=== PATIENT | female | born 1970 | race Caucasian/White ===

== ENCOUNTER 2023-07-14 11:47 | Outpatient (CLI) | payer OTHER, SELFPAY ==
--- OUTSIDE RECORDS SUMMARY | 2023-07-14 11:50 | XMS_ITS | Continuity of Care Document ---
Author Name Unknown Address [address] [place], [place] [id number] Organization [facility] Phone Care Team Providers Care It Support Specialist Name Role Phone ERIK METZ Primary Care CANDIS KELLY Admitting CANDIS KELLY Unavailable CANDIS KELLY Primary Attending ALLERGIES AND ADVERSE REACTIONS ALLERGIES AND ADVERSE REACTIONS Code System Allergy Substance Adverse Reaction Date Reaction (Severity) Comment Status Reported By Updated By No Known Allergies [email or web address] on July 09, 2023 6:49:21 PM UTC RESULTS Patient: STEVAN RITCHIE Date of : 1970 LABORATORY RESULTS ORDER 100: UA AND MICRO/CULT IF INDICATED (LOINC: 99324-6) ORDER DATE: July 09, 2023 6:54:00 PM UTC Specimen Source: URINE Specimen Type: Urine specime n PERFORMING LAB: [address] [id number] Result Comment: Final Result Date: July 09, 2023 6:59:00 PM UTC (TECH: [employer]) LOINC TEST FLAG RESULT REFERENCE RANGE UPDA JAMESON BY 5778-6 Color of Urine N yellow YELLOW July 6:59:00 PM UTC (TECH: [employer]) 5767-9 Appearance of Urine N clear CLEAR July 09, 2023 6:59:00 PM UTC (TECH: [facility]) 5792-7 Glucose [Mass/volume] in Urine by Test strip N NORM NORMAL July 09, 2023 6:59:00 PM UTC (TECH: [facility]) 40042-4 Bilirubin.total [Mass/volume] in Urine by Automated test strip N NEGATIVE NEGATIVE July 09, 2023 6:59:00 PM UTC (TECH: [employer]) 5797-6 Ketones [Mass/volume] in Urine by Test strip N NEGATIVE NEGATIVE July 09, 2023 6:59:00 PM UTC (TECH: [employer]) 2965-2 Specific gravity of Urine N 1.010 1.005 - 1.035 July 09, 2023 6:59:00 PM UTC (TECH: [employer]) 25752-6 Erythrocytes [#/volume] in Urine by Automated test strip N NEGATIVE NEGATIVE July 09, 2023 6:59:00 PM UTC (TECH: [employer]) 28557-6 pH of Urine by Automated test strip N 6.00 5.0 - 7.5 July 09, 2023 6:59:00 PM UTC (TECH: [employer]) 96142-4 Protein [Presence] in Urine by Test strip N NEGATIVE NEGATIVE July 09, 2023 6:59:00 PM UTC (TECH: [employer]) 96389-2 Urobilinogen [Mass/volume] in Urine by Automated test strip N NORM NORMAL July 09, 2023 6:59:00 PM UTC (TECH: [employer]) 09849-6 Nitrate [Presence] in Urine N NEGATIVE NEGATIVE July 09, 2023 6:59:00 PM UTC (TECH: [employer]) 20917-2 Leukocytes [#/volume] in Urine by Test strip N TRACE (25) /mcL NEGATIVE July 09, 2023 6:59:00 PM UTC (TECH: [employer]) 72555-7 Other elements in Urine sediment N NOT REQUIRED July 09, 2023 6:59:00 PM UTC (TECH: [employer]) 86318-9 Microscopic observation [Identifier] in Urine sediment by Light microscopy N NO July 09, 2023 6:59:00 PM UTC (TECH: [employer]) ORDER 300: CBC AUTO W DIFF ( LOINC: 41875-8) ORDER DATE: July 09, 2023 7:33:00 PM UTC Specimen Source: Whole Blood Specimen Type: Whole blood s ample PERFORMING LAB: [address] [id number] Result Comment: Final Result Date: July 09, 2023 8:05:00 PM UTC (TECH: [employer]) LOINC TEST FLAG RESULT REFERENCE RANGE UPDA JAMESON BY 6690-2 Leukocytes [#/volume] in Blood by Automated count H 11.7 10^3/uL 4.5 10^3/uL - 11.5 10^3/uL July 09, 2023 8:05:00 PM UTC (TECH: [employer]) 789-8 Erythrocytes [#/volume] in Blood by Automated count H 5.60 10^6/uL 4.25 10^6/uL - 5.57 10^6/uL July 09, 2023 8:05:00 PM UTC (TECH: [employer]) 718-7 Hemoglobin [Mass/volume] in Blood H 16.7 g/dL 12.0 g/dL - 15.7 g/dL July 09, 2023 8:05:00 PM UTC (TECH: [employer]) 08570-7 Hematocrit [Volume Fraction] of Blood H 49.2 % 36.0 % - 47.0 % July 09, 2023 8:05:00 PM UTC (TECH: [employer]) 787-2 Erythrocyte mean corpuscular volume [Entitic volume] by Automated count N 87.9 fl 80 fl - 95 fl July 09, 2023 8:05:00 PM UTC (TECH: [employer]) 29095-2 Erythrocyte mean corpuscular hemoglobin [Entitic mass] in Blood from Fetus by Automated count N 29.8 pg 27.0 pg - 34.0 pg July 09, 2023 8:05:00 PM UTC (TECH: [employer]) 09403-8 Erythrocyte mean corpuscular hemoglobin concentration [Mass/volume] in Blood from Fetus by Automated count N 33.9 g/dL 32.0 g/dL - 36.0 g/dL July 09, 2023 8:05:00 PM UTC (TECH: [employer]) 69869-3 Platelets [#/volume] in Blood N 160 10^3/uL 150 10^3/uL - 450 10^3/uL July 09, 2023 8:05:00 PM UTC (TECH: [employer]) 70450-4 Erythrocyte distribution width [Ratio] H 15.4 % 12.3 % - 15.1 % July 09, 2023 8:05:00 PM UTC (TECH: [employer]) 48894-5 Platelet mean volume [Entitic volume] in Blood by Automated count H 12.1 fl 7.4 fl - 10.4 fl July 09, 2023 8:05:00 PM UTC (TECH: [employer]) 87576-6 Granulocytes/100 leukocytes in Blood by Automated count N 56.8 % 40 % - 75 % July 09, 2023 8:05:00 PM UTC (TECH: [facility]) 736-9 Lymphocytes/100 leukocytes in Blood by Automated count N 35.4 % 15 % - 57 % July 09, 2023 8:05:00 PM UTC (TECH: [employer]) 5905-5 Monocytes/100 leukocytes in Blood by Automated count N 6.3 % 4.0 % - 12.0 % July 09, 2023 8:05:00 PM UTC (TECH: [employer]) 713-8 Eosinophils/100 leukocytes in Blood by Automated count N 0.8 % 0.0 % - 4.0 % July 09, 2023 8:05:00 PM UTC (TECH: [employer]) 706-2 Basophils/100 leukocytes in Blood by Automated count N 0.4 % 0.0 % - 1.0 % July 09, 2023 8:05:00 PM UTC (TECH: [employer]) 20342-8 Immature granulocytes [#/volume] in Blood N 0.3 % 0.0 % - 0.8 % July 09, 2023 8:05:00 PM UTC (TECH: [employer]) 56600-8 Granulocytes [#/volume] in Blood by Automated count N 6.67 10^3/uL July 09, 2023 8:05:00 PM UTC (TECH: [employer]) 731-0 Lymphocytes [#/volume] in Blood by Automated count N 4.15 10^3/uL July 09, 2023 8:05:00 PM UTC (TECH: [employer]) 742-7 Monocytes [#/volume] in Blood by Automated count N 0.74 10^3/uL July 09, 2023 8:05:00 PM UTC (TECH: [facility]) 711-2 Eosinophils [#/volume] in Blood by Automated count N 0.09 10^3/uL July 09, 2023 8:05:00 PM UTC (TECH: [employer]) 704-7 Basophils [#/volume] in Blood by Automated count N 0.05 10^3/uL July 09, 2023 8:05:00 PM UT (TECH: [employer]) 97097-6 Immature granulocytes [#/volume] in Blood N 0.03 10^3/uL July 09, 2023 8:05:00 PM UT (TECH: [employer]) 63565-6 Manual differential performed [Presence] in Blood N NO July 09, 2023 8:05:00 PM UT (TECH: [employer]) ORDER 400: COMP METABOLIC PA TAYE (LOINC: 14000-8) ORDER DATE: July 09, 2023 7:33:00 PM UT Specimen Source: Plasma Specimen Type: Plasma specim en PERFORMING LAB: [address] [id number] Result Comment: Final Result Date: July 09, 2023 8:19:00 PM [facility] (TECH: [employer]) LOINC TEST FLAG RESULT REFERENCE RANGE UPDA JAMESON BY 2951-2 Sodium [Moles/volume ] in Serum or Plasma N 140 mmol/L 136 mmol/L - 145 mmol/L July 09, 2023 8:19:00 PM UT (TECH: [employer]) 2823-3 Potassium [Moles/volume] in Serum or Plasma N 4.4 mmol/L 3.5 mmol/L - 5.1 mmol/L July 09, 2023 8:19:00 PM UT (TECH: [employer]) 2075-0 Chloride [Moles/volu me] in Serum or Plasma N 103 mmol/L 98 mmol/L - 107 mmol/L July 09, 2023 8:19:00 PM UT (TECH: [employer]) 8-9 Carbon dioxide, tota l [Moles/volume] in Serum or Plasma N 31 mmol/L 21 mmol/L - 32 mmol/L July 09, 2023 8:19:00 PM UT (TECH: [employer]) 12907-4 Anion gap 3 in Serum or Plasma N 6.0 July 09, 2023 8:19:00 PM UT (TECH: [employer]) 2345-7 Glucose [Mass/volume ] in Serum or Plasma N 109 mg/dL 70 mg/dL - 110 mg/dL July 09, 2023 8:19:00 PM UT (TECH: [employer]) 3094-0 Urea nitrogen [Mass/volume] in Serum or Plasma N 9 mg/dL 7 mg/dL - 18 mg/dL July 09, 2023 8:19:00 PM [facility] (TECH: [employer]) 2160-0 Creatinine [Mass/volume] in Serum or Plasma N 0.9 mg/dL 0.6 mg/dL - 1.0 mg/dL July 09, 2023 8:19:00 PM [facility] (TECH: [employer]) 3097-3 Urea nitrogen/Creatinine [Mass Ratio] in Serum or Plasma N 10.0 Ratio 9 Ratio - 21 Ratio July 09, 2023 8:19:00 PM [facility] (TECH: [employer]) 67436-2 Glomerular filtratio n rate/1.73 sq M.predicted by Creatinine-based formula (MDRD) N 69 mL/min >60 July 09, 2023 8:19:00 PM [facility] (TECH: [employer]) 2885-2 Protein [Mass/volume ] in Serum or Plasma N 7.4 g/dL 6.4 g/dL - 8.2 g/dL July 09, 2023 8:19:00 PM [facility] (TECH: [employer]) 1751-7 Albumin [Mass/volume ] in Serum or Plasma N 3.9 g/dL 3.4 g/dL - 5.0 g/dL July 09, 2023 8:19:00 PM [facility] (TECH: [employer]) 95446-2 Calcium [Mass/volume ] in Serum or Plasma H 10.4 mg/dL 8.5 mg/dL - 10.1 mg/dL July 09, 2023 8:19:00 PM [facility] (TECH: [employer]) 50825-2 Calcium [Mass/volume ] corrected for total protein in Serum or Plasma H 10.5 mg/dL 8.5 mg/dL - 10.1 mg/dL July 09, 2023 8:19:00 PM [facility] (TECH: [employer]) 1975-2 Bilirubin.total [Mass/volume] in Serum or Plasma N 0.6 mg/dL 0.4 mg/dL - 1.5 mg/dL July 09, 2023 8:19:00 PM [facility] (TECH: [employer]) 1920-8 Aspartate aminotransferase [Enzymatic activity/volume] in Serum or Plasma N 18 U/L 15 U/L - 37 U/L July 09, 2023 8:19:00 PM [facility] (TECH: [employer]) 1742-6 Alanine aminotransferase [Enzymatic activity/volume] in Serum or Plasma N 39 U/L 12 U/L - 78 U/L July 09, 2023 8:19:00 PM UT (TECH: [employer]) 6768-6 Alkaline phosphatase [Enzymatic activity/volume] in Serum or Plasma N 93 U/L 50 U/L - 120 U/L July 09, 2023 8:19:00 PM UTC (TECH: [employer]) ORDER 500: LIPASE (LOINC: 30 40-3) ORDER DATE: July 09, 2023 7:33:00 PM UTC Specimen Source: Plasma Specimen Type: Plasma specim en PERFORMING LAB: [address] [id number] Result Comment: Final Result Date: July 09, 2023 8:19:00 PM UT (TECH: [employer]) LOINC TEST FLAG RESULT REFERENCE RANGE UPDA JAMESON BY 3040-3 Lipase [Enzymatic activity/volume] in Serum or Plasma N 39 U/L 16 U/L - 77 U/L July 09, 2023 8:19:00 PM UTC (TECH: [employer]) ORDER 600: TROPONIN QUANT (L OINC: 29638-8) ORDER DATE: July 09, 2023 7:33:00 PM UTC Specimen Source: Plasma Specimen Type: Plasma specim en PERFORMING LAB: [address] [id number] Result Comment: Final Result Date: July 09, 2023 8:19:00 PM UT (TECH: [employer]) LOINC TEST [place] [address]-7 Troponin I.cardiac p anshu - Serum or Plasma by High sensitivity method N 6 ng/L 0 ng/L - 51 ng/L July 09, 2023 8:19:00 PM UT (TECH: [employer]) LABORATORY NARRATIVE RESULTS Information is not available RADIOLOGY RESULTS ORDER 200: CT ABD/PEL NO ORA L OR IV CONTR (LOINC: 97654-9) ORDER DATE: July 09, 2023 7:33:00 PM UTC PERFORMING LAB: [address] [id number] Final Result Date: July 08 8:18:[address] [place] [address] Name: ERMA CALLES Exam Date: 07/09/2023 : 1970 Age 53 years Gender: F Physician: CANDIS KELLY Facility: PSYCHIATRIC Facility HSV: Outpatient Exam: CT ABD/PEL NO ORAL OR IV CONTR FINAL REPORT TECHNIQUE: Axial images through the abdomen and pelvis were performed without contrast. This study was performed with techniques to keep radiation doses as low as reasonably achievable, (ALARA). Individualized dose reduction techniques using automated exposure control or adjustment of mA and/or kV according to the patient's size were employed. CLINICAL HISTORY: RT flank pain x 4 days, no hx of renal stones FINDINGS: ABDOMEN: The lung bases are clear. There is a small hiatal hernia. The heart size is normal. Limited images of the liver are unremarkable. The gallbladder is absent. The spleen is normal. The right adrenal gland is unremarkable. There is fat density involving the left adrenal gland measuring up to 3.8 cm likely a myelolipoma. There is atherosclerosis without aneurysm. There is no significant free fluid or adenopathy. There is no nephrolithiasis. There is no hydronephrosis. There are postoperative changes in the ventral abdominal wall. PELVIS: The appendix is not identified. The cecum is noted in the left lower quadrant. The urinary bladder is decompressed. There is a left adnexal cystic structure measuring up to 3.9 cm likely reflecting a cyst. Pelvic ultrasound may be of benefit. IMPRESSION: Left ovarian cyst. Consider pelvic ultrasound if clinically warranted. 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 Reviewed, Interpreted and Dictated by Deondre Somers DO Transcribed by Ab Venegas Authenticated and EASTERN Dictated By: Deondre Somers DO Transcribed By: Transcribed On: 07/09/2023 4:18 PM Electronically signed by: Deondre Somers DO 07/09/2023 Thank you for referring ERMA CALLES to [facility]. Legally authenticated by POPE DEONDRE Montes DO 2023-07-09 16:18:55 PATHOLOGY NARRATIVE RESULTS Information is not available MICROBIOLOGY RESULTS No Micro Labs/Results Exist for Patient BLOOD ADMIN RESULTS Information is not available MEDICATIONS HOME MEDICATIONS Status RXNORM NDC Medication Dose Route Frequency Dates Comments Reported By Updated By Drug Treatment Unknown DISCHARGE MEDICATIONS Status RXNORM NDC Medication Dose Route Frequency Dates Comments Physician Updated By No Discharge Medication Info rmation Available INPATIENT MEDICATIONS Status RXNORM NDC Medication Dose Route Frequency Rat e Quantity Dates Comments Physician Updated By Susanna inued [id number] ketorolac (TORADOL) 30 MG/ML SOLN 30.0 MG INTRAV ENOUS ONE TIME ONLY Start: July 09, 2023 8:02:0 0 PM UTC End: July 09, 2023 8:02:0 0 PM UTC LETICIA Irby MD INTERFAC ED on July 09, 2023 8:01:00 PM UT Discont inued [id number] famotidine (PEPCID) 20 MG/2ML SOLN 20.0 MG INTRAV ENOUS ONE TIME ONLY Start: July 09, 2023 8:04:0 0 PM UTC End: July 09, 2023 8:04:0 0 PM UTC LETICIA Irby MD INTERFAC ED on July 09, 2023 8:02:00 PM UT SOCIAL HISTORY SOCIAL HISTORY SNOMED-CT Social History Element Description Effective Dates Offered Cessation Comment UpdatedBy [id number] Smoking Status Unknown If Ever Smoked SOCIAL HISTORY - Gender Sex: Female SOCIAL HISTORY - Status : status i nformation is not available Intention in Next Year: intention information is not available SOCIAL HISTORY - Sexual Behavior Sexual Orientation Gender Identity SNOMED-CT Description SNO MED -CT Description Activity Level No of Partners Partner Type UpdatedBy Information is not available VITAL SIGNS PATIENT VITAL SIGNS This section displays the mo st recent value for each vital sign as of July 11, 2023 1:49:58 PM UT Loinc Code Vital Sign Activity Date Result Updated By 8310-5 Body temperature July 09, 2023 6:4 2:00 PM UTC 97.9 [degF] [id number] on July 09, 2023 6:47:53 PM UT 8462-4 Diastolic blood pressure July 09, 2023 8:43:00 PM UTC 78.0 mm[Hg] [id number] on July 09, 2023 8:44:17 PM UT 8867-4 Heart rate July 09, 2023 8:43 :00 PM UT 85 /min [id number] on July 09, 2023 8:44:17 [place] [address]-2 Oxygen saturation in Arterial blood by Pulse oximetry July 09, 2023 8:43:00 PM [facility] 100.0 % [id number] on July 09, 2023 8:44:17 PM [facility] 9279-1 Respiratory rate July 09, 2023 8:4 3:00 PM [facility] 18 /min [id number] on July 09, 2023 8:44:17 PM [facility] 8480-6 Systolic blood pressure July 08 024 8:43:00 PM UT 136.0 mm[Hg] [id number] on July 09, 2023 8:44:17 PM [facility] PEDIATRIC GROWTH CHART - VITAL SIGNS This section displays Head C ircumference Percentile, Weight for Length Percentile and BMI Percentile Loinc Code Pediatric Measure Age (Months) Result Updat ed By No Pediatric Growth Chart Pe rcentile Information Available. HEALTH CONCERNS Problems Concern Status Health Concern problem infor mation not available. Smoking Status Status Years Used Consumed packs p er day Health Concern smoking histo ry information not available. Family History Concern Status Health Concern family histor y information not available. ENCOUNTERS ENCOUNTER INFORMATION Reason for Visit BACK PAIN Admission July 09, 2023 6:25:[address] [address] Discharge July 09, 2023 8:44:00 PM [facility] DISCH ARGED TO HOME OR SELF CARE ENCOUNTER DIAGNOSES Notes information is not mikaela ilable. Code System Diagnosis Onset Date Diagnosis information is not available. ABSTRACT DIAGNOSES Code System Diagnosis Updated By R10.9 ICD10 UNSPECIFIED ABDOMINAL PAIN P [id number] on July 11, 2023 1:49:30 PM [facility] M62.830 ICD10 MUSCLE SPASM OF BACK [id number] on July 11, 2023 1:49:31 PM [facility] Q50.1 ICD10 DEVELOPMENTAL OVARIAN CYST P [id number] on July 11, 2023 1:49:31 PM [facility] D17.79 ICD10 BENIGN LIPOMATOU S NEOPLASM OF OTHER SITES [id number] on July 11, 2023 1:49:31 PM [facility] I10 ICD10 ESSENTIAL (PRIMARY) HYPERTEN REGINA [id number] on July 11, 2023 1:49:31 PM [facility] E11.9 ICD10 TYPE 2 DIABETES MELLITUS WITHOUT COMPLICATIONS [id number] on July 11, 2023 1:49:31 PM [facility] F17.210 ICD10 NICOTINE DEPENDE NCE, CIGARETTES, UNCOMPLICATED [id number] on July 11, 2023 1:49:31 PM UTC E66.9 ICD10 OBESITY, UNSPECIFIED [id number] on July 11, 2023 1:49:31 PM UT Z68.25 ICD10 BODY MASS INDEX [BMI] 25.0-2 5.9, ADULT [id number] on July 11, 2023 1:49:31 PM UT CARE TEAM Care It Support Specialist Role ERIK METZ Primary Care CANDIS KELLY Admitting CANDIS KELLY Referring CANDIS KELLY Primary Attending CARE TEAM CARE line tender flakeboard Role on Team Status Start Date End Date Update d By LETICIA Irby MD Referring normal July 08 7:03:02 PM [facility] July 09, 2023 4:00:00 AM UT [id number] on July 09, 2023 7:03:02 PM [facility] LETICIA Irby MD Attending normal July 08 7:03:02 PM [facility] July 09, 2023 4:00:00 AM UT [id number] on July 09, 2023 7:03:02 PM [facility] LETICIA Irby MD Admitting normal July 08 7:03:02 PM [facility] July 09, 2023 4:00:00 AM UT [id number] on July 09, 2023 7:03:02 PM [facility] LASHAY GAMBINO PCP normal July 09, 2023 6:25:48 PM [facility] July 09, 2023 4:00:00 AM UT [id number] on July 09, 2023 7:03:02 PM [facility]
--- OUTSIDE RECORDS SUMMARY | 2023-07-14 11:50 | XMS_ITS | Continuity of Care Document ---
Author Name Unknown Address [address] [place] [phone] Organization [facility] Phone Care Team Providers Care Em Physician Name Role Phone ERIK METZ Primary Care ERIK METZ Unavailable ERIK METZ Admitting ERIK METZ Primary Attending ALLERGIES AND ADVERSE REACTIONS ALLERGIES AND ADVERSE REACTIONS Code System Allergy Substance Adverse Reaction Date Reaction (Severity) Comment Status Reported By Updated By No Known Allergies [id number] on July 09, 2023 6:49:21 PM [facility] RESULTS Patient: STEVAN RITCHIE Date of : 1970 LABORATORY RESULTS Information is not available LABORATORY NARRATIVE RESULTS Information is not available RADIOLOGY RESULTS ORDER 100: CHEST PA AND LAT (LOINC: 92817-0) ORDER DATE: July 13, 2023 5:12:00 PM [facility] PERFORMING LAB: [address] [id number] Final Result Date: July 12 5:35:[address] [place] [address] Name: ERMA CALLES Exam Date: 07/13/2023 : 1970 Age 53 years Gender: F Physician: ERIK METZ Facility: [facility] Facility HSV: Outpatient Exam: CHEST PA & LAT CHEST, 2 views HISTORY: Cough. COMPARISON: None. FINDINGS: The lungs are clear. There is no evidence of effusion or other pleural disease. The mediastinum has a normal appearance. The cardiac silhouette is unremarkable. IMPRESSION: No acute cardiopulmonary process Dictated By: Shun downs Transcribed By: Shun downs Transcribed On: 07/13/2023 1:35 PM Electronically signed by: Shun downs 07/13/2023 Thank you for referring ERMA CALLES to [facility]. Legally authenticated by SHASHANK Henderson MD 2023-07-13 13:35:32 PATHOLOGY NARRATIVE RESULTS Information is not available [...] e Quantity Dates Comments Physician Updated By No Inpatient Medication Info rmation Available SOCIAL HISTORY SOCIAL HISTORY SNOMED-CT Social History Element Description Effective Dates Offered Cessation Comment UpdatedBy [id number] Smoking Status Unknown If Ever Smoked SOCIAL HISTORY - Gender Sex: Female SOCIAL HISTORY - Status : status i nformation is not available Intention in Next Year: intention information is not available SOCIAL HISTORY - Sexual Behavior Sexual Orientation Gender Identity SNOMED-CT Description SNO MED -CT Description Activity Level No of Partners Partner Type UpdatedBy Information is not available HEALTH CONCERNS Problems Concern Status Health Concern problem infor mation not available. Smoking Status Status Years Used Consumed packs p er day Health Concern smoking histo ry information not available. Family History Concern Status Health Concern family histor y information not available. ENCOUNTERS ENCOUNTER INFORMATION Reason for Visit COUGH Admission July 13, 2023 5:05:[address] [address] Discharge July 13, 2023 5:05:00 PM [facility] DISCH ARGED TO HOME OR SELF CARE ENCOUNTER DIAGNOSES Notes information is not mikaela ilable. Code System Diagnosis Onset Date Diagnosis information is not available. ABSTRACT DIAGNOSES Code System Diagnosis Updated By Abstract Diagnosis informati on is not available. CARE TEAM Care Em Physician Role ERIK METZ Primary Care ERIK METZ Referring ERIK METZ Admitting ERIK METZ Primary Attending CARE TEAM CARE dice spotter Role on Team Status Start Date End Date Update d By LASHAY GAMBINO PCP normal July 13, 2023 4:00:00 AM [facility] July 13, 2023 5:05:00 PM [facility] [id number] on July 13, 2023 5:06:01 PM [facility] LASHAY GAMBINO Referring normal July 13, 2023 4:00:00 AM [facility] July 13, 2023 5:05:00 PM [facility] [id number] on July 13, 2023 5:06:01 PM [facility] LASHAY GAMBINO Attending normal July 13, 2023 4:00:00 AM [facility] July 13, 2023 5:05:00 PM [facility] [id number] on July 13, 2023 5:06:01 PM [facility] LASHAY GAMBINO Admitting normal July 13, 2023 4:00:00 AM [facility] July 13, 2023 5:05:00 PM [facility] [id number] on July 13, 2023 5:06:01 PM [facility]
--- OUTSIDE RECORDS SUMMARY | 2023-07-14 11:50 | XMS_ITS | Continuity of Care Document ---
Author Name Unknown Address [address] [place], [place] [id number] Organization [facility] Phone Care Team Providers Care Respiratory Coordinator Name Role Phone ERIK METZ Primary Care CANDIS KELLY Admitting CANDIS KELLY Unavailable CANDIS KELLY Primary Attending ALLERGIES AND ADVERSE REACTIONS ALLERGIES AND ADVERSE REACTIONS Code System Allergy Substance Adverse Reaction Date Reaction (Severity) Comment Status Reported By Updated By No Known Allergies [id number] on July 09, 2023 6:49:21 PM UTC RESULTS Patient: STEVAN RITCHIE Date of : 1970 LABORATORY RESULTS ORDER 100: UA AND MICRO/CULT IF INDICATED (LOINC: 44419-1) ORDER DATE: July 09, 2023 6:54:00 PM UTC Specimen Source: URINE Specimen Type: Urine specime n PERFORMING LAB: [address] [id number] Result Comment: Final Result Date: July 09, [...] 09, 2023 6:59:00 PM UTC (TECH: [facility]) 78887-9 Bilirubin.total [Mass/volume] in Urine by Automated test strip N NEGATIVE NEGATIVE July 09, 2023 6:59:00 PM UTC (TECH: [employer]) 5797-6 Ketones [Mass/volume] in Urine by Test strip N NEGATIVE NEGATIVE July 09, 2023 6:59:00 PM UTC (TECH: [employer]) 2965-2 Specific gravity of Urine N 1.010 1.005 - 1.035 July 09, 2023 6:59:00 PM UTC (TECH: [employer]) 50564-8 Erythrocytes [#/volume] in Urine by Automated test strip N NEGATIVE NEGATIVE July 09, 2023 6:59:00 PM UTC (TECH: [employer]) 37508-3 pH of Urine by Automated test strip N 6.00 5.0 - 7.5 July 09, 2023 6:59:00 PM UTC (TECH: [employer]) 71696-0 Protein [Presence] in Urine by Test strip N NEGATIVE NEGATIVE July 09, 2023 6:59:00 PM UTC (TECH: [employer]) 13857-0 Urobilinogen [Mass/volume] in Urine by Automated test strip N NORM NORMAL July 09, 2023 6:59:00 PM UTC (TECH: [employer]) 67891-1 Nitrate [Presence] in Urine N NEGATIVE NEGATIVE July 09, 2023 6:59:00 PM UTC (TECH: [employer]) 81260-5 Leukocytes [#/volume] in Urine by Test strip N TRACE (25) /mcL NEGATIVE July 09, 2023 6:59:00 PM UTC (TECH: [employer]) 11232-6 Other elements in Urine sediment N NOT REQUIRED July 09, 2023 6:59:00 PM UTC (TECH: [employer]) 47567-9 Microscopic observation [Identifier] in Urine sediment by Light microscopy N NO July 09, 2023 6:59:00 PM UTC (TECH: [employer]) ORDER 300: CBC AUTO W DIFF ( LOINC: 78285-7) ORDER DATE: July 09, 2023 7:33:00 PM UTC Specimen Source: Whole Blood Specimen Type: Whole blood s ample PERFORMING LAB: [address] [id number] Result Comment: Final Result Date: July 09, 2023 8:05:00 PM UTC (TECH: [employer]) LOINC TEST FLAG RESULT REFERENCE RANGE UPDA JAMESON BY 6690-2 Leukocytes [#/volume] in Blood by Automated count H 11.7 10^3/uL 4.5 10^3/uL - 11.5 10^3/uL July 09, 2023 8:05:00 PM UTC (TECH: [employer]) 789-8 Erythrocytes [#/volume] in Blood by Automated count H 5.60 10^6/uL 4.25 10^6/uL - 5.57 10^6/uL July 09, 2023 8:05:00 PM UTC (TECH: [employer]) 718-7 Hemoglobin [Mass/volume] in Blood H 16.7 g/dL 12.0 g/dL - 15.7 g/dL July 09, 2023 8:05:00 PM UTC (TECH: [employer]) 62014-9 Hematocrit [Volume Fraction] of Blood H 49.2 % 36.0 % - 47.0 % July 09, 2023 8:05:00 PM UTC (TECH: [employer]) 787-2 Erythrocyte mean corpuscular volume [Entitic volume] by Automated count N 87.9 fl 80 fl - 95 fl July 09, 2023 8:05:00 PM UTC (TECH: [employer]) 38785-5 Erythrocyte mean corpuscular hemoglobin [Entitic mass] in Blood from Fetus by Automated count N 29.8 pg 27.0 pg - 34.0 pg July 09, 2023 8:05:00 PM UTC (TECH: [employer]) 29889-9 Erythrocyte mean corpuscular hemoglobin concentration [Mass/volume] in Blood from Fetus by Automated count N 33.9 g/dL 32.0 g/dL - 36.0 g/dL July 09, 2023 8:05:00 PM UTC (TECH: [employer]) 37508-4 Platelets [#/volume] in Blood N 160 10^3/uL 150 10^3/uL - 450 10^3/uL July 09, 2023 8:05:00 PM UTC (TECH: [employer]) 09353-1 Erythrocyte distribution width [Ratio] H 15.4 % 12.3 % - 15.1 % July 09, 2023 8:05:00 PM UTC (TECH: [employer]) 26298-9 Platelet mean volume [Entitic volume] in Blood by Automated count H 12.1 fl 7.4 fl - 10.4 fl July 09, 2023 8:05:00 PM UTC (TECH: [employer]) 45669-3 Granulocytes/100 leukocytes in Blood by Automated count N 56.8 % 40 % - 75 % July 09, 2023 8:05:00 PM UTC (TECH: [facility]) 736-9 Lymphocytes/100 leukocytes in Blood by Automated count N 35.4 % 15 % - 57 % July 09, 2023 8:05:00 PM UTC (TECH: [employer]) 5905-5 Monocytes/100 leukocytes in Blood by Automated count N 6.3 % 4.0 % - 12.0 % July 09, 2023 8:05:00 PM UTC (TECH: [employer]) 713-8 Eosinophils/100 leukocytes in Blood by Automated count N 0.8 % 0.0 % - 4.0 % July 09, 2023 8:05:00 PM UTC (TECH: [employer]) 706-2 Basophils/100 leukocytes in Blood by Automated count N 0.4 % 0.0 % - 1.0 % July 09, 2023 8:05:00 PM UTC (TECH: [employer]) 68939-8 Immature granulocytes [#/volume] in Blood N 0.3 % 0.0 % - 0.8 % July 09, 2023 8:05:00 PM UTC (TECH: [employer]) 15864-2 Granulocytes [#/volume] in Blood by Automated count N 6.67 10^3/uL July 09, 2023 8:05:00 PM UTC (TECH: [facility]) 731-0 Lymphocytes [#/volume] in Blood by Automated count N 4.15 10^3/uL July 09, 2023 8:05:00 PM UTC (TECH: [employer]) 742-7 Monocytes [#/volume] in Blood by Automated count N 0.74 10^3/uL July 09, 2023 8:05:00 PM UTC (TECH: [facility]) 711-2 Eosinophils [#/volume] in Blood by Automated count N 0.09 10^3/uL July 09, 2023 8:05:00 PM UTC (TECH: [facility]) 704-7 Basophils [#/volume] in Blood by Automated count N 0.05 10^3/uL July 09, 2023 8:05:00 PM UT (TECH: [employer]) 56471-8 Immature granulocytes [#/volume] in Blood N 0.03 10^3/uL July 09, 2023 8:05:00 PM UT (TECH: [employer]) 29505-5 Manual differential performed [Presence] in Blood N NO July 09, 2023 8:05:00 PM UT (TECH: [employer]) ORDER 400: COMP METABOLIC PA TAYE (LOINC: 78612-7) ORDER DATE: July 09, 2023 7:33:00 PM UT Specimen Source: Plasma Specimen Type: Plasma specim en PERFORMING LAB: [address] [id number] Result Comment: Final Result Date: July 09, 2023 8:19:00 PM [facility] (TECH: [employer]) LOINC TEST FLAG RESULT REFERENCE RANGE UPDA JAMESON BY 2951-2 Sodium [Moles/volume ] in Serum or Plasma N 140 mmol/L 136 mmol/L - 145 mmol/L July 09, 2023 8:19:00 PM UT (TECH: [employer]) 2823-3 Potassium [Moles/volume] in Serum or Plasma N 4.4 mmol/L 3.5 mmol/L - 5.1 mmol/L July 09, 2023 8:19:00 PM UT (TECH: [employer]) 2075-0 Chloride [Moles/volu me] in Serum or Plasma N 103 mmol/L 98 mmol/L - 107 mmol/L July 09, 2023 8:19:00 PM UT (TECH: [employer]) 8-9 Carbon dioxide, tota l [Moles/volume] in Serum or Plasma N 31 mmol/L 21 mmol/L - 32 mmol/L July 09, 2023 8:19:00 PM UT (TECH: [employer]) 45305-4 Anion gap 3 in Serum or Plasma N 6.0 July 09, 2023 8:19:00 PM UT (TECH: [employer]) 2345-7 Glucose [Mass/volume ] in Serum or Plasma N 109 mg/dL 70 mg/dL - 110 mg/dL July 09, 2023 8:19:00 PM UT (TECH: [employer]) 3094-0 Urea nitrogen [Mass/volume] in Serum or Plasma N 9 mg/dL 7 mg/dL - 18 mg/dL July 09, 2023 8:19:00 PM [facility] (TECH: [employer]) 2160-0 Creatinine [Mass/volume] in Serum or Plasma N 0.9 mg/dL 0.6 mg/dL - 1.0 mg/dL July 09, 2023 8:19:00 PM [facility] (TECH: [employer]) 3097-3 Urea nitrogen/Creatinine [Mass Ratio] in Serum or Plasma N 10.0 Ratio 9 Ratio - 21 Ratio July 09, 2023 8:19:00 PM [facility] (TECH: [employer]) 80512-3 Glomerular filtratio n rate/1.73 sq M.predicted by Creatinine-based formula (MDRD) N 69 mL/min >60 July 09, 2023 8:19:00 PM [facility] (TECH: [employer]) 2885-2 Protein [Mass/volume ] in Serum or Plasma N 7.4 g/dL 6.4 g/dL - 8.2 g/dL July 09, 2023 8:19:00 PM [facility] (TECH: [employer]) 1751-7 Albumin [Mass/volume ] in Serum or Plasma N 3.9 g/dL 3.4 g/dL - 5.0 g/dL July 09, 2023 8:19:00 PM [facility] (TECH: [employer]) 67211-2 Calcium [Mass/volume ] in Serum or Plasma H 10.4 mg/dL 8.5 mg/dL - 10.1 mg/dL July 09, 2023 8:19:00 PM [facility] (TECH: [facility]) 42559-4 Calcium [Mass/volume ] corrected for total protein in Serum or Plasma H 10.5 mg/dL 8.5 mg/dL - 10.1 mg/dL July 09, 2023 8:19:00 PM [facility] (TECH: [employer]) 1975-2 Bilirubin.total [Mass/volume] in Serum or Plasma N 0.6 mg/dL 0.4 mg/dL - 1.5 mg/dL July 09, 2023 8:19:00 PM [facility] (TECH: [employer]) 1920-8 Aspartate aminotransferase [Enzymatic activity/volume] in Serum or Plasma N 18 U/L 15 U/L - 37 U/L July 09, 2023 8:19:00 PM [facility] (TECH: [employer]) 1742-6 Alanine aminotransferase [Enzymatic activity/volume] in Serum [...] Specimen Type: Plasma specim en PERFORMING LAB: [address] [id number] Result Comment: Final Result Date: July 09, 2023 8:19:00 PM UT (TECH: [facility]) LOINC TEST FLAG RESULT REFERENCE RANGE UPDA JAMESON BY 3040-3 Lipase [Enzymatic activity/volume] in Serum or Plasma N 39 U/L 16 U/L - 77 U/L July 09, 2023 8:19:00 PM UTC (TECH: [facility]) ORDER 600: TROPONIN QUANT (L OINC: 12209-3) ORDER DATE: July 09, 2023 7:33:00 PM UTC Specimen Source: Plasma Specimen Type: Plasma specim en PERFORMING LAB: [address] [id number] Result Comment: Final Result Date: July 09, 2023 8:19:00 PM UT (TECH: [facility]) LOINC TEST FLAG [place] [address]-2 Troponin I.cardiac p anshu - Serum or Plasma by High sensitivity method N 6 ng/L 0 ng/L - 51 ng/L July 09, 2023 8:19:00 PM UT (TECH: [facility]) LABORATORY NARRATIVE RESULTS Information is not available RADIOLOGY RESULTS ORDER 200: CT ABD/PEL NO ORA L OR IV CONTR (LOINC: 17939-4) ORDER DATE: July 09, 2023 7:33:00 PM UTC PERFORMING LAB: [address] [id number] Final Result Date: July 08 8:18:[address] [place] [address] Name: ERMA CALLES Exam Date: 07/09/2023 : 1970 Age 53 years Gender: F Physician: CANDIS KELLY Facility: [facility] Facility HSV: Outpatient Exam: CT ABD/PEL NO [...] Thank you for referring ERMA CALLES to [facility]. Legally authenticated by POPE DEONDRE Montes DO [...] Dates Comments Physician Updated By Susanna inued [id number] [phone] ketorolac (TORADOL) 30 MG/ML SOLN 30.0 MG INTRAV ENOUS ONE TIME ONLY Start: July 09, 2023 8:02:0 0 PM UTC End: July 09, 2023 8:02:0 0 PM UTC LETICIA Irby MD INTERFAC ED on July 09, 2023 8:01:00 PM UT Discont inued [id number] [phone] famotidine (PEPCID) 20 MG/2ML SOLN 20.0 MG INTRAV ENOUS ONE TIME ONLY Start: July 09, 2023 8:04:0 0 PM UTC End: July 09, 2023 8:04:0 0 PM UTC LETICIA Irby MD INTERFAC ED on July 09, 2023 8:02:00 PM UT SOCIAL HISTORY SOCIAL HISTORY SNOMED-CT Social History Element Description Effective Dates Offered Cessation Comment UpdatedBy [id number] Smoking Status Unknown If Ever Smoked SOCIAL [...] for each vital sign as of July 09, 2023 9:44:02 PM UT Loinc Code Vital Sign Activity Date Result Updated By 8310-5 Body temperature July 09, 2023 6:4 2:00 PM UTC 97.9 [degF] [id number] on July 09, 2023 6:47:53 PM UT 8462-4 Diastolic blood pressure July 09, 2023 8:43:00 PM UTC 78.0 mm[Hg] [id number] on July 09, 2023 8:44:17 PM UT 8867-4 Heart rate July 09, 2023 8:43 :00 PM UT 85 /min [id number] on July 09, 2023 8:44:[place] [address]-9 Oxygen saturation in Arterial blood by Pulse oximetry July 09, 2023 8:43:00 PM [facility] 100.0 % [id number] on July 09, 2023 8:44:17 PM [facility] 9279-1 Respiratory rate July 09, 2023 8:4 3:00 PM [facility] 18 /min [id number] on July 09, 2023 8:44:17 PM [facility] 8480-6 Systolic blood pressure July 08, 024 8:43:00 PM [facility] 136.0 mm[Hg] [id number] on July 09, 2023 8:44:17 PM [facility] PEDIATRIC GROWTH CHART - VITAL SIGNS This [...] PAIN Admission July 09, 2023 6:25:[address] [id number] Discharge July 09, 2023 8:44:00 PM [facility] DISCH ARGED TO HOME OR SELF CARE ENCOUNTER DIAGNOSES Notes information is not mikaela ilable. Code System Diagnosis Onset Date Diagnosis information is not available. ABSTRACT DIAGNOSES Code System Diagnosis Updated By Abstract Diagnosis informati on is not available. CARE TEAM Care Respiratory Coordinator Role ERIK METZ Primary Care CANDIS KELLY Admitting CANDIS KELLY Referring CANDIS KELLY Primary Attending CARE TEAM CARE textile knitter Role on Team Status Start Date End Date Update d By LETICIA Irby MD Referring normal July 08 7:03:02 PM [facility] July 09, 2023 8:44:00 PM [facility] [id number] on July 09, 2023 7:03:02 PM [facility] LETICIA Irby MD Attending normal July 08 7:03:02 PM [facility] July 09, 2023 8:44:00 PM [facility] [id number] on July 09, 2023 7:03:02 PM [facility] LETICIA Irby MD Admitting normal July 08 7:03:02 PM [facility] July 09, 2023 8:44:00 PM [facility] [id number] on July 09, 2023 7:03:02 PM [facility] LASHAY FREEMAN Y PCP normal July 09, 2023 6:25:48 PM [facility] July 09, 2023 8:44:00 PM [facility] [id number] on July 09, 2023 7:03:02 PM [facility]
[2023-07-14 12:17] LABS: Basophils # 0.2 K/mm3 (0-0.2); Basophils % 1.6 % (0.1-2.0); Eosinophils # 0.1 K/mm3 (0.0-0.4); Eosinophils % 1.1 % (0.1-12.0); Hemoglobin 17.4 g/dL (12.2-16.2); Lymphocytes % 37.3 % (10-50); Mean Corpuscular HGB Conc 31.5 g/dL (31.8-35.4); Mean Corpuscular Volume 95.3 fl (81-99); Mean Platelet Volume 9.7 fl (7.4-10.4); Monocytes # 0.5 K/mm3 (0.1-1.0); Monocytes % 5.1 % (1.7-9.3); Neutrophils # 5.9 K/mm3 (1.8-7.8); Neutrophils % 54.9 % (37.0-80.0); Platelet Count 209 K/mm3 (142-424); Red Blood Count 5.78 M/mm3 (4.20-5.40); Red Cell Distribution Width 14.4 % (11.5-17.5); White Blood Count 10.7 K/mm3 (4.8-10.8)
[2023-07-18 21:08] LABS: D001-IgE D pteronyssinus <0.10 kU/L (Class 0); D002-IgE D farinae <0.10 kU/L (Class 0); E001-IgE Cat Dander <0.10 kU/L (Class 0); E005-IgE Dog Dander <0.10 kU/L (Class 0); E072-IgE Mouse Urine <0.10 kU/L (Class 0); G002-IgE Bermuda Grass <0.10 kU/L (Class 0); G006-IgE Timothy Grass <0.10 kU/L (Class 0); I006-IgE Cockroach, German <0.10 kU/L (Class 0); Immunoglobulin E, Total 12 IU/mL (6-495); M001-IgE Penicillium chrysogen <0.10 kU/L (Class 0); M002-IgE Cladosporium herbarum <0.10 kU/L (Class 0); M003-IgE Aspergillus fumigatus <0.10 kU/L (Class 0); M006-IgE Alternaria alternata <0.10 kU/L (Class 0); T001-IgE Maple/Box Elder <0.10 kU/L (Class 0); T003-IgE Common Silver Birch <0.10 kU/L (Class 0); T006-IgE Cedar, Mountain <0.10 kU/L (Class 0); T007-IgE Oak, White <0.10 kU/L (Class 0); T008-IgE Elm, American <0.10 kU/L (Class 0); T010-IgE Walnut <0.10 kU/L (Class 0); T011-IgE Maple Leaf Sycamore <0.10 kU/L (Class 0); T014-IgE Cottonwood <0.10 kU/L (Class 0); T015-IgE Ash, White <0.10 kU/L (Class 0); T022-IgE Pecan, Hickory <0.10 kU/L (Class 0); T070-IgE White Mulberry <0.10 kU/L (Class 0); W001-IgE Ragweed, Short <0.10 kU/L (Class 0); W011-IgE Thistle, Russian <0.10 kU/L (Class 0); W014-IgE Pigweed, Common <0.10 kU/L (Class 0); W018-IgE Sheep Sorrel <0.10 kU/L (Class 0)
== END 2023-07-14 23:59 | disposition home or self-care (01) ==
LOC: LAB 11:49
PROVIDERS: PCP Family Medicine; Visit Provider Internal Medicine Pulmonary Disease
DX: J45.909 Unspecified asthma, uncomplicated (principal); R06.02 Shortness of breath
CPT/HCPCS: 36415; 82785; 85025; 86003

== ENCOUNTER 2023-07-20 11:31 | Outpatient (CLI) | payer OTHER, SELFPAY ==
--- NOTE | 2023-07-20 | CA_ITS ---
FINAL REPORT TECHNIQUE: Color Doppler, duplex Doppler and compression sonography of the right lower extremity venous system was performed. CLINICAL HISTORY: rt calf pain, smoker COMPARISON: None FINDINGS: There is no evidence of deep venous thrombosis from the level of the groin to the calf. The veins are patent and compressible. IMPRESSION: No evidence of deep venous thrombosis right lower extremity. Reviewed, Interpreted and Dictated by Flavio Michael III, MD Transcribed by Cecilia Chand Authenticated and [facility]
[2023-07-20 12:12] LABS: Basophils # 0.2 K/mm3 (0-0.2); Basophils % 1.5 % (0.1-2.0); Eosinophils # 0.2 K/mm3 (0.0-0.4); Eosinophils % 1.5 % (0.1-12.0); Hematocrit 53.3 % (37.0-47.0); Hemoglobin 17.1 g/dL (12.2-16.2); Lymphocytes # 4.1 K/mm3 (0.7-4.5); Lymphocytes % 32.2 % (10-50); Mean Corpuscular HGB Conc 32.1 g/dL (31.8-35.4); Mean Corpuscular Hemoglobin 30.6 pg (27.0-31.2); Mean Corpuscular Volume 95.3 fl (81-99); Monocytes # 0.7 K/mm3 (0.1-1.0); Monocytes % 5.2 % (1.7-9.3); Neutrophils # 7.6 K/mm3 (1.8-7.8); Neutrophils % 59.7 % (37.0-80.0); Platelet Count 220 K/mm3 (142-424); Red Blood Count 5.59 M/mm3 (4.20-5.40); Red Cell Distribution Width 14.6 % (11.5-17.5); White Blood Count 12.7 K/mm3 (4.8-10.8)
[2023-07-20 12:47] LABS: Alanine Aminotransferase 27 U/L (12-78); Albumin Level 4.2 g/dl (3.5-5.0); Alkaline Phosphatase 77 U/L (38-126); Anion Gap 10.4 mEq/L (5-15); Aspartate Amino Transferase 25 U/L (14-36); Bilirubin,Direct 0.2 mg/dl (0.0-0.4); Bilirubin,Indirect 0.5 mg/dL (0.0-0.9); Bilirubin,Total 0.7 mg/dl (0.2-1.3); Bilirubin,Unconjugated 0.6 mg/dL (0.0-1.1); Blood Urea Nitrogen 11 mg/dl (7-17); Calcium 10.5 mg/dl (8.4-10.2); Carbon Dioxide 30 mmol/L (22.0-30.0); Chloride 105 mmol/L (98-107); Chol/HDL Ratio 2.3 (1-3.5); Cholesterol 135 mg/dl (140-200); Estimated Glomerular Filt Rate 87 ml/min (>60); GFR (African American) 105 ML/MIN (>60); Glucose 100 mg/dl (74-100); HDL Cholesterol 59 mg/dl (40-60); Potassium 4.4 mmoL/L (3.5-5.1); Sodium 141 mmol/L (136-145); Total Protein,Serum 6.8 g/dl (6.3-8.2); Triglycerides 185 mg/dl (30-150); VLDL Cholesterol 37 mg/dL (0-40)
[2023-07-20 12:57] LABS: Direct LDL Cholesterol 45.76 mg/dL (100-129)
[2023-07-20 13:17] LABS: Thyroid Stimulating Hormone 0.41 uIU/mL (0.465-4.68)
== END 2023-07-20 23:59 | disposition home or self-care (01) ==
PROVIDERS: PCP Family Medicine; Visit Provider Nurse Practitioner
DX: M79.661 Pain in right lower leg (principal); R07.9 Chest pain, unspecified; R42 Dizziness and giddiness; R60.0 Localized edema; R06.09 Other forms of dyspnea; F17.210 Nicotine dependence, cigarettes, uncomplicated
CPT/HCPCS: 36415; 80048; 80061; 80076; 83735; 84439; 84443; 85025; 93971

== ENCOUNTER 2023-12-06 09:44 | Outpatient (CLI) | payer OTHER, SELFPAY ==
--- NOTE | 2023-12-06 09:51 | CA_ITS ---
APPROVED REPORT EXAM: Comprehensive 2D, Doppler, and color-flow Echocardiogram Computer Systems Manager: Yessy Hay RT(R) Ht: 5 ft 6 in Wt: 211lbs BSA: 2.05 BP: 151/85 mmHg Indications: CP, dizziness, edema, smoker, VALENTE, COPD 2D Dimensions Left Atrium 3.70 cm F: 2.7 - 3.8 LVEF (Ambriz's) 45.20 % F: 54 - 74 LVOT 1.88 cm (M/F) 1.5-2.5 LV Volume 76.10 mL F: 46 - 106 LV Volume Index 37.1 mL/m2 F: 29 - 61 LA Volume 30.80 mL LA Volume Index 15.02 mL/m2 (M/F) 16-34 EF AP4 45.90 % EF AP2 46.4 % EF BP 45.2 % GL Strain -18.2 % M-Mode Dimensions RVDd 2.43 cm (0.9-2.6) LVDd 4.36 cm (3.5-5.7) Ao Diam 2.36 cm (2.0-3.7) LVDs 3.30 cm (3.5-5.7) IVSd 0.64 cm (0.6-1.1) PWd 0.68 cm (0.6-1.1) EF (Teich) 48.60% FS 24.30% EDV (Teich) 85.80 mL ESV (Teich) 44.10 mL LV Diastology E Decel Time 203 (160-240 msec) E/A Ratio 1.4 MED E' 6.1 (>= 7 cm/sec) E'/MED E' Ratio 15.07 (<= 14) LAT E' 8.9 (>= 10 cm/sec) E/LAT E' Ratio 10.33 (<= 14) Mitral Valve MV E Max Rober. 92.0 (40-130 cm/s) MV A Velocity 67.0 (40-130 cm/s) E/A Ratio 1.37 MV Decel. Time 203 (160-240 ms) Tricuspid Valve TR P. Velocity 215.00 cm/s RAP Estimate 10.00 mmHg RVSP 28.50 mmHg Left Ventricle The left ventricle is normal size. The left ventricular systolic function is low normal. There is increased LV wall thickness. There is normal LV segmental wall motion. The left ventricular diastolic function is normal. LVEF is 50%. Right Ventricle The right ventricle is normal size. The right ventricular systolic function is normal. Atria The left atrium size is normal. The right atrium size is normal. There is no Doppler evidence of interatrial shunt. Aortic Valve The aortic valve is mildly thickened. There is no aortic valvular stenosis. No aortic regurgitation is present. Mitral Valve The mitral valve is normal in structure. No evidence of mitral valve stenosis. Trace mitral regurgitation. Tricuspid Valve The tricuspid valve leaflets are thin and pliable. Trace tricuspid regurgitation. There is insufficient TR jet to estimate RVSP. Pulmonic Valve The pulmonary valve is normal in structure. Trace pulmonic regurgitation. Great Vessels The aortic root is not well-visualized. IVC is normal in size and collapses >50% with inspiration. Pericardium There is no pericardial effusion. Other Information Study Quality: Fair Conclusion Low normal LV systolic function (LVEF 50%). Normal RV size and function. No significant valvular stenosis or regurgitation. Electronically signed by : Cyndy Bill MD 12/06/2023 12:37:31
== END 2023-12-06 23:59 | disposition home or self-care (01) ==
LOC: RT 09:45
PROVIDERS: PCP Family Medicine; Visit Provider Nurse Practitioner
DX: R06.09 Other forms of dyspnea (principal); R94.31 Abnormal electrocardiogram [ECG] [EKG]; R42 Dizziness and giddiness; R07.9 Chest pain, unspecified
CPT/HCPCS: 93306